=== PATIENT | female | born 1930 | race Caucasian/White ===

== ENCOUNTER 2016-05-29 06:41 | Emergency (ER) | payer OTHER ==
[~2016-05-29] VITALS: Ht 154.9 cm; Wt 54.4 kg
--- NOTE | ~2016-05-29 | EKG ---
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
[~2016-05-29 06:41] MED LIST: ADULT LOW DOSE81 MG PO; ALVESCO6.1; APAP500 PO; ASA81BEC PO; ASPIRIN81 M2 PO; AZITHROMYCIN; BACTRIM DS TAB1 EACH PO; BETAPACE AF80 MG PO; CARAFATE 1 GM TA1 G1 PO; CIPRO500 MG; CIPROFLOXACIN500 M1 PO; CLEOCIN HCL150 MG; COMBIVENT INH; DULERA 100 MCG/13 GM; DULERA 200 MCG/13 GM INH; ENTOCORT; FLAGYL500 MG PO; FLONASE16 GM NASAL; HYDROCHLOROTH12.5 M1 PO; HYDROCHLOROTH12.5 MG PO; HYDROCODONE-AP1 EAC6 PO; IBUPROFEN 600600 M1 PO; KEFLEX500 MG PO; LEVAQUIN 250 M250 MG PO; LEVAQUIN 500 M500 MG PO; LEVOTHYROXINE0.05 MG PO; LEVOXYL; LIDODERM 5%1 PATC1 TRANSDERM; LYRICA 50 MG50 MG PO; LYRICA PO; MACROBID 100 M100 M2 PO; NEXIUM 40 MG CA40 M1 PO; NEXIUM40 MG PO; NORCO 5-325 TA1 EACH PO; ONDANSETRON HCL4 M2 PO; PLAVIX 75 MG TA75 M1 PO; PREDNISONE 5 MG5 M1 PO; PROTONIX40 MG PO; PULMICORT FLE180 MCG INH; PULMICORT0.25 MG/2; PULMICORT0.25 MG/2 IH; PULMICORT0.25 MG/3 INH; REGLAN 10 MG TA10 MG PO; SANCTURA XR60 M1 PO; SINGULAIR 10 MG10 M1 PO; SORINE 80 MG TA80 MG PO; TEGRETOL XR100 MG PO; TEKTURNA PO; TEKTURNA150 MG PO; TEKTURNA300 MG PO; TRAMADOL 50 MG50 MG; TROSPIUM CHLORI60 MG PO; ULTRAM 50MG TAB50 MG PO; URIBEL CAPSULE1 EACH PO; VOLTAREN GEL 1100 G1 TOP; ZOCOR40 MG PO; ZOFRAN ODT4 MG PO; ZOFRAN4 MG PO
[2016-05-29 07:42] LABS: ABSOLUTE NEUTROPHILS 8.4 thou/uL (1.4-8.2); BASOPHILS 0.3 % (0.0-2.0); EOSINOPHILS 0.6 % (0.0-3.0); HEMOGLOBIN 13.2 gm/dL (12.0-15.0); LYMPHOCYTES 14.5 % (24.0-44.0); MCH 30.1 pg (26.0-34.0); MCHC 33.8 g/dL (28.0-37.0); MCV 89.2 fL (80.0-100.0); MONOCYTES 9.2 % (1.0-8.0); PLATELET COUNT 199 thou/uL (150-400); POLYS 75.4 % (36.0-66.0); RBC 4.37 mil/uL (4.20-5.00); RDW 14.6 % (10.5-14.5); WBC 11.1 thou/uL (4.0-11.0)
[2016-05-29 07:46] LABS: ANION GAP 8 mmol/L (7-16); BUN 14 mg/dL (7-18); CALCIUM 8.9 mg/dL (8.5-10.1); CHLORIDE 106 mmol/L (98-107); CO2 26 mmol/L (21-32); CREATININE 0.8 mg/dL (0.6-1.3); GLUCOSE 119 mg/dL (70-99); POTASSIUM 3.8 mmol/L (3.5-5.1); SODIUM 140 mmol/L (136-145)
[2016-05-29 07:47] LABS: MANUAL DIFF NO
[2016-05-29 07:52] LABS: ALBUMIN 3.2 g/dL (3.4-5.0); ALKALINE PHOSPHATASE 87 U/L (46-116); DIRECT BILIRUBIN < 0.1 mg/dL (<0.1-0.3); SGOT 15 U/L (15-37); SGPT 14 U/L (30-65); TOTAL BILIRUBIN 0.5 mg/dL (<0.1-1.0); TOTAL PROTEIN 6.6 g/dL (6.4-8.2); TROPONIN-I < 0.04 ng/mL (<0.04-0.07)
[2016-05-29 09:28] LABS: URINE BILIRUBIN NEGATIVE (Negative); URINE BLOOD TRACE (Negative); URINE COLOR YELLOW; URINE GLUCOSE-RANDOM* NEGATIVE (Negative); URINE KETONES NEGATIVE (Negative); URINE LEUKOCYTES-REFLEX NEGATIVE (Negative); URINE PROTEIN (DIPSTICK) NEGATIVE (Negative); URINE SPECIFIC GRAVITY 1.015 (1.003-1.035); URINE UROBILINOGEN 0.2 E.U./dl (0.2-1.0)
[2016-05-29 09:34] LABS: CASTS None Seen /LPF (None Seen); CRYSTALS None Seen /LPF (None Seen); SQUAMOUS 4-10 Moderate /LPF (0-3); URINE WBC-REFLEX 0-5 Rare /HPF (0-5)
[2016-05-29 09:35] LABS: URINE RBC 0-2 Rare /HPF (0-2)
[2016-05-29] MEDS ORDERED: CIPROFLOXACIN500 M1 PO (10:12)
[2016-05-29] MEDS ORDERED: ZOFRAN ODT4 MG PO (10:12)
[2016-05-29 10:51] VITALS: BP 112/47
== END 2016-05-29 11:09 | disposition home or self-care (01) ==
LOC: ER 06:41
PROVIDERS: Emergency Medicine
DX: N39.0 Urinary tract infection, site not specified (principal); R11.2 Nausea with vomiting, unspecified; J45.909 Unspecified asthma, uncomplicated; Z90.49 Acquired absence of other specified parts of digestive tract; Z90.710 Acquired absence of both cervix and uterus; I10 Essential (primary) hypertension; E78.5 Hyperlipidemia, unspecified; Z91.013 Allergy to seafood; Z88.5 Allergy status to narcotic agent; Z88.1 Allergy status to other antibiotic agents; Z88.0 Allergy status to penicillin; Z88.8 Allergy status to other drugs, medicaments and biological substances; F10.99 Alcohol use, unspecified with unspecified alcohol-induced disorder

== ENCOUNTER 2016-05-29 17:22 | Inpatient (IN) | payer OTHER ==
[~2016-05-29] VITALS: Ht 154.9 cm; Wt 62.1 kg
--- NOTE | ~2016-05-29 | H ---
[facility] [place] [address] HISTORY AND PHYSICAL Name: AMBER MIRAMONTES Room #: 406-P ADM IN M.R.#: [id number] Admission: 05/29/16 Attend Phys: Hoa Saeed MD Discharge: Date of : [birth year] Report #: [id number] THIS REPORT FOR: //name// CC: Mahad Saeed DATE OF SERVICE: 05/29/2016 PRIMARY CARE DOCTOR: Mahad Blum M.D. CHIEF COMPLAINT: Nausea. HISTORY OF PRESENT ILLNESS: The patient is an 86-year-old female seen in the ER earlier today and diagnosed with UTI. Sent home with Cipro and Zofran, presented to the ER secondary to nausea. The patient has a history of recurrent UTIs with multiple resistances and recently saw Urology, Dr. Chopra for a bladder biopsy. Additionally, she has had a number of urine cultures here at least 2 in the last year that grew out E. coli with multiple resistances. She received some Cipro and has a little bit of a rash on her chest. Despite that though her last 2 urine cultures were resistant to Cipro. She is alerted to a number of antibiotics including penicillins and cephalosporins. On her last admission in 2015, she was on gentamicin. PAST MEDICAL HISTORY: Recurrent UTIs, multiple antibiotic allergies, history of congenital abnormality of the right ureter, paroxysmal AFib not on chronic anticoagulation, dyslipidemia, hypertension, asthma followed by KYLE Moore with a history of Schatzki ring status post esophageal dilatation, lymphocytic colitis, history of diverticulitis, macular degeneration. PAST SURGICAL HISTORY: She has had a tonsillectomy, appendectomy, cholecystectomy, TAHBSO, cystocele and rectocele repair, surgery for broken right second toe. 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 FAMILY HISTORY: Brother and sister have dyslipidemia. REVIEW OF SYSTEMS: A 14-point review of system was conducted, all negative except for above. ALLERGIES: To SEAFOOD causes throat swelling, PHENERGAN causes combativeness and double vision; ROCEPHIN, PENICILLIN, CEPHALOSPORINS and MEPERIDINE, reaction unknown; CODEINE causes nausea and vomiting. [address] [address] HISTORY AND PHYSICAL Name: AMBER MIRAMONTES Room #: [address] [place] [address] IN ..#: [id number] Admission: 05/29/16 Attend Phys: Hoa Saeed MD Discharge: Date of : [birth year] Report #: [id number] CURRENT MEDICATIONS: Include Cipro and Zofran that she was sent home on, Tekturna 150 daily, simvastatin 40 daily, sotalol 80 daily, Uribel 1 daily. PHYSICAL EXAMINATION: VITAL SIGNS: Temperature 98, pulse 101, blood pressure 136/88, O2 sat 96% on room air. GENERAL: She is awake and alert, answering questions appropriately in no acute respiratory distress, although she is extremity hard of hearing. She is without her hearing aids at this time. HEENT: Normocephalic, atraumatic. Pupils are dry. NECK: Supple. CARDIOVASCULAR: Regular rhythm, increased in rate. No murmurs. LUNGS: Clear to auscultation bilaterally. No crackles or wheeze. ABDOMEN: Soft, no distention or tenderness. EXTREMITIES: No edema. NEUROLOGIC: Nonfocal. LABS AND TESTING: UA showed positive nitrites, negative leukocyte esterase greater than 30 bacteria, negative wbc's, lactate 1.0. Sodium of 140, potassium 3.8, BUN and creatinine of 14 and 0.8. LFTs are negative. CBC: White count of 11, H and H of 13 and 39, platelets 199, 75 segs. ASSESSMENT AND PLAN: 1. Recurrent urinary tract infections in a patient with a history of multiple antibiotic allergies and urinary tract infections with multiple resistances. We will consult ID, continue IV fluids. In the past, she has received gentamicin and there is also some indication that she has had meropenem in the past as well, but I cannot verify this. Additionally, she tells me she was recently on an antibiotic, but is uncertain as to what it was. We will continue antiemetics and IV fluids as well. 2. Paroxysmal atrial fibrillation not on chronic anticoagulation. Continue the same. 3. Dyslipidemia. Continue the same. 4. Hypertension. Continue the same. 5. Deep venous thrombosis prophylaxis with Lovenox. By: 1831 19 My Jorge Saeed MD /nt
--- NOTE | ~2016-05-29 | HC ---
[facility] [place] [address] CONSULTATION Name: AMBER MIRAMONTES Room #: 406-P ADM IN M.R.#: [id number] Admission: 05/29/16 Attend Phys: Hoa Saeed MD Discharge: Date of : [birth year] Report #: [id number] THIS REPORT FOR: //name// CC: Mahad Saeed INFECTIOUS DISEASE CONSULTATION REASON FOR CONSULTATION: I was asked to evaluate concerning ongoing nausea and possible urinary tract infection. 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 Actually she underwent a bladder biopsy after cystoscopy about 2 weeks ago at [facility]. She states that no pathology was identified. She presents to the Emergency Room on May 29 with 24 hour history of persistent nausea and just felt awful. Initially thought to have a urinary tract infection and was placed on ciprofloxacin. She took one pill and returned to the Emergency Room with the same complaints. No documented fever or leukocytosis. Her urinalysis showed bacteria, although urine white cell was negative. She has had no back or flank pain. No documented dysuria. No vomiting. Her stools have been normal. She does have a history of diverticulosis and a history of diverticulitis. Denies any rashes. She has had no cough or sputum production. No chest pain. She states that she feels better today and when I went in to see her, she was eating a bowl of ice cream. She was placed on meropenem. ALLERGIES: Include PENICILLIN, CEPHALOSPORINS, DEMEROL, CODEINE, PHENERGAN and SEAFOOD. MEDICATIONS: As noted on her MAR, now on meropenem. PAST MEDICAL HISTORY: Tonsillectomy, appendectomy, cholecystectomy, total abdominal hysterectomy, bilateral salpingo-oophorectomy, cystocele and rectocele repair, recurrent urinary tract infections. States that she has abnormal right ureter. Diverticulitis, lymphocytic colitis, macular degeneration, paroxysmal atrial fibrillation, hyperlipidemia, hypertension, asthma, gastroesophageal reflux, Schatzki ring, status post dilatation. FAMILY HISTORY: Hyperlipidemia. SOCIAL HISTORY: Retired, lives in [facility] living, nonsmoker, no significant alcohol intake. REVIEW OF SYSTEMS: Noted above. PHYSICAL EXAMINATION: VITAL SIGNS: Afebrile, hemodynamically stable. [address] [address] CONSULTATION Name: AMBER MIRAMONTES Room #: [address] [place] [address] IN M.R.#: [id number] Admission: 05/29/16 Attend Phys: Hoa Saeed MD Discharge: Date of : [birth year] Report #: [id number] GENERAL: She was alert and cooperative and pleasant. HEENT: Hard of hearing. SKIN: Unremarkable. LYMPH: Unremarkable. HEENT: Unremarkable. LUNGS: Clear. HEART: Regular without murmur. ABDOMEN: Soft with mild tenderness in the lower abdomen. No hepatosplenomegaly or mass. No CVA tenderness. EXTREMITIES: Unremarkable. LABORATORY STUDIES: Hemoglobin 12.3, white count 8.3, platelet count 180,000. Segs 64, 22% lymphs, lactate 1. Sodium 141, potassium 3.7, bicarbonate 26, creatinine 0.8. Liver function test normal. Urinalysis, no wbcs, moderate bacteria. Urine culture is showing gram negative bacteria. Review of her previous urine cultures showed E. coli within the last 2 years on several occasions and before this had Klebsiella. Last CT scan of the abdomen and pelvis was in January of 2016. This revealed prominence of the bladder wall and extensive diverticulosis. IMPRESSION AND PLAN: An 86-year-old with complaints of nausea. This has improved after hydration. She has bacteriuria with no other urinary tract symptoms. Therefore her unifying diagnosis is yet indeterminate. I would recommend continuing IV antibiotics another 24 hours and reassess. If she still has lower abdominal tenderness, would consider repeating CT scan to assess for diverticulitis. <ELECTRONICALLY SIGNED> By: Ruslan Ji MD 05/31/16 1115 1856 0109 Ruslan Ji MD /nt
[2016-05-29 17:23] VITALS: BP 160/90
[2016-05-29 20:10] VITALS: BP 126/69
[2016-05-29 23:30] VITALS: BP 125/71
[2016-05-30 03:56] VITALS: BP 104/55
[2016-05-30 06:44] LABS: ABSOLUTE NEUTROPHILS 5.4 thou/uL (1.4-8.2); BASOPHILS 0.4 % (0.0-2.0); EOSINOPHILS 0.5 % (0.0-3.0); HEMATOCRIT 36.1 % (37.0-47.0); HEMOGLOBIN 12.3 gm/dL (12.0-15.0); LYMPHOCYTES 22.4 % (24.0-44.0); MCH 30.4 pg (26.0-34.0); MCHC 34.1 g/dL (28.0-37.0); MONOCYTES 11.9 % (1.0-8.0); PLATELET COUNT 180 thou/uL (150-400); POLYS 64.8 % (36.0-66.0); RBC 4.05 mil/uL (4.20-5.00); RDW 14.7 % (10.5-14.5); WBC 8.3 thou/uL (4.0-11.0)
[2016-05-30 06:46] LABS: MANUAL DIFF NO
[2016-05-30 07:00] LABS: CALCIUM 8.7 mg/dL (8.5-10.1); CREATININE 0.8 mg/dL (0.6-1.3); POTASSIUM 3.7 mmol/L (3.5-5.1)
[2016-05-30 08:17] VITALS: BP 110/57
[2016-05-30 17:39] VITALS: BP 128/48
[2016-05-30 19:30] VITALS: BP 140/56
[2016-05-30 19:46] VITALS: BP 124/77
[2016-05-31 05:10] VITALS: BP 107/87
[2016-05-31 08:00] VITALS: BP 128/62
[2016-05-31 15:48] VITALS: BP 117/58
[2016-05-31 16:27] VITALS: BP 117/58
== END 2016-05-31 17:49 | disposition home or self-care (01) | DRG 690 ==
LOC: ER 17:22 → EROBS 17:56 → 4N 17:56
PROVIDERS: Family Medicine
DX: N39.0 Urinary tract infection, site not specified (principal); K57.90 Diverticulosis of intestine, part unspecified, without perforation or abscess without bleeding; J45.909 Unspecified asthma, uncomplicated; I10 Essential (primary) hypertension; E78.5 Hyperlipidemia, unspecified; R00.0 Tachycardia, unspecified; I48.0 Paroxysmal atrial fibrillation; H35.30 Unspecified macular degeneration; K21.9 Gastro-esophageal reflux disease without esophagitis; Z79.01 Long term (current) use of anticoagulants; Z90.710 Acquired absence of both cervix and uterus; Z88.6 Allergy status to analgesic agent; Z88.0 Allergy status to penicillin; Z88.8 Allergy status to other drugs, medicaments and biological substances; Z90.49 Acquired absence of other specified parts of digestive tract; Z91.013 Allergy to seafood; Z90.722 Acquired absence of ovaries, bilateral; Z79.899 Other long term (current) drug therapy; Z83.49 Family history of other endocrine, nutritional and metabolic diseases
CPT/HCPCS: 10091

== ENCOUNTER → 2016-08-22 | Outpatient (CLI) | payer OTHER | LOC: RAD 02:45 → ULTRA 02:45 | DX: R92.8 Other abnormal and inconclusive findings on diagnostic imaging of breast (principal) ==

== ENCOUNTER 2016-10-03 11:41 | Inpatient (IN) | payer OTHER ==
[~2016-10-03] VITALS: Ht 165.1 cm; Wt 66.7 kg
[2016-10-03 11:45] VITALS: BP 113/64
[2016-10-03 12:09] LABS: HEMATOCRIT 40.5 % (37.0-47.0); HEMOGLOBIN 13.8 gm/dL (12.0-15.0); MANUAL DIFF YES; MCH 30.7 pg (26.0-34.0); MCHC 34.2 g/dL (28.0-37.0); MCV 89.9 fL (80.0-100.0); PLATELET COUNT 222 thou/uL (150-400); RBC 4.51 mil/uL (4.20-5.00); RDW 14.8 % (10.5-14.5); WBC 10.2 thou/uL (4.0-11.0)
[2016-10-03 12:16] LABS: ANION GAP 9 mmol/L (7-16); BUN 21 mg/dL (7-18); CALCIUM 9.2 mg/dL (8.5-10.1); CHLORIDE 104 mmol/L (98-107); CO2 26 mmol/L (21-32); CREATININE 0.9 mg/dL (0.6-1.0); GLUCOSE 108 mg/dL (74-106); SODIUM 139 mmol/L (136-145)
[2016-10-03 12:22] LABS: ALBUMIN 3.5 g/dL (3.4-5.0); ALKALINE PHOSPHATASE 84 U/L (46-116); DIRECT BILIRUBIN < 0.1 mg/dL (<0.1-0.3); SGOT 15 U/L (15-37); SGPT 14 U/L (30-65); TOTAL BILIRUBIN 0.5 mg/dL (<0.1-1.0); TOTAL PROTEIN 7.2 g/dL (6.4-8.2)
[2016-10-03 12:40] LABS: URINE BILIRUBIN NEGATIVE (Negative); URINE BLOOD TRACE (Negative); URINE COLOR YELLOW; URINE GLUCOSE-RANDOM* NEGATIVE (Negative); URINE KETONES NEGATIVE (Negative); URINE NITRITE NEGATIVE (Negative); URINE PROTEIN (DIPSTICK) NEGATIVE (Negative); URINE UROBILINOGEN 0.2 E.U./dl (0.2-1.0)
[2016-10-03 12:49] LABS: BACTERIA >30 Many /HPF (None Seen); CASTS None Seen /LPF (None Seen); CRYSTALS None Seen /LPF (None Seen); SQUAMOUS 0-3 Few /LPF (0-3); URINE RBC 0-2 Rare /HPF (0-2); URINE WBC >25 Many /HPF (0-5)
[2016-10-03 12:58] LABS: ABSOLUTE NEUTROPHILS 6.1 thou/uL (1.4-8.2); ANISOCYTOSIS SLIGHT; ATYPICAL LYMPHS 1 %; TOTAL CELL COUNT 100
[2016-10-03 13:11] VITALS: BP 139/74
[2016-10-03 13:15] VITALS: BP 146/71
[2016-10-03 14:15] VITALS: BP 147/61
[2016-10-03 20:00] VITALS: BP 89/55
[2016-10-04] VITALS: BP 88/63
[2016-10-04 04:00] VITALS: BP 136/53
[2016-10-04 06:56] LABS: HEMATOCRIT 37.5 % (37.0-47.0); HEMOGLOBIN 12.8 gm/dL (12.0-15.0); MCH 30.6 pg (26.0-34.0); MCHC 34.1 g/dL (28.0-37.0); MCV 89.9 fL (80.0-100.0); RBC 4.18 mil/uL (4.20-5.00); RDW 15.2 % (10.5-14.5); WBC 7.7 thou/uL (4.0-11.0)
[2016-10-04 07:17] LABS: CALCIUM 8.9 mg/dL (8.5-10.1); POTASSIUM 4.8 mmol/L (3.5-5.1)
[2016-10-04 08:00] VITALS: BP 123/62
[2016-10-04 16:00] VITALS: BP 130/65
[2016-10-04 20:10] VITALS: BP 138/65
[2016-10-05 04:25] VITALS: BP 120/66
[2016-10-05 07:22] VITALS: BP 132/70
[2016-10-05 09:37] LABS: BASOPHILS 0.7 % (0.0-2.0); EOSINOPHILS 1.2 % (0.0-3.0); HEMATOCRIT 39.6 % (37.0-47.0); HEMOGLOBIN 13.5 gm/dL (12.0-15.0); LYMPHOCYTES 27.4 % (24.0-44.0); MCH 30.3 pg (26.0-34.0); MCHC 34.1 g/dL (28.0-37.0); MCV 88.8 fL (80.0-100.0); MONOCYTES 7.2 % (1.0-8.0); PLATELET COUNT 222 thou/uL (150-400); POLYS 63.5 % (36.0-66.0); RBC 4.45 mil/uL (4.20-5.00); RDW 14.7 % (10.5-14.5); WBC 6.3 thou/uL (4.0-11.0)
[2016-10-05 09:41] LABS: MANUAL DIFF NO
[2016-10-05 09:44] LABS: CREATININE 0.9 mg/dL (0.6-1.0); POTASSIUM 4.2 mmol/L (3.5-5.1)
[2016-10-05 16:24] VITALS: BP 113/49
[2016-10-05 20:25] VITALS: BP 101/55
[2016-10-06 04:10] VITALS: BP 110/61
[2016-10-06 07:23] VITALS: BP 114/54
[2016-10-06] MEDS ORDERED: MONUROL3 GM PO (11:43)
[2016-10-06 12:24] VITALS: BP 114/54
== END 2016-10-06 13:35 | disposition home health service (06) | DRG 690 ==
LOC: ER 11:41 → 3N 12:57 → EROBS 12:57 → 3N 14:08
PROVIDERS: Emergency Medicine; Hospitalist; Nurse Practitioner
DX: N39.0 Urinary tract infection, site not specified (principal); K57.90 Diverticulosis of intestine, part unspecified, without perforation or abscess without bleeding; J45.909 Unspecified asthma, uncomplicated; I10 Essential (primary) hypertension; E78.00 Pure hypercholesterolemia, unspecified; H35.30 Unspecified macular degeneration; E78.5 Hyperlipidemia, unspecified; Z90.49 Acquired absence of other specified parts of digestive tract; Z90.710 Acquired absence of both cervix and uterus; Z79.899 Other long term (current) drug therapy; Z88.0 Allergy status to penicillin; Z88.8 Allergy status to other drugs, medicaments and biological substances; Z88.6 Allergy status to analgesic agent; Z91.013 Allergy to seafood
CPT/HCPCS: 10795

== ENCOUNTER 2016-11-10 00:27 | Emergency (ER) | payer OTHER ==
[~2016-11-10] VITALS: Ht 154.9 cm; Wt 54.4 kg
--- NOTE | ~2016-11-10 | EKG ---
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 : 1930 Requested By: Lorraine Silverio Order Number: [id number] MD: Rajesh Paz Measurements Intervals [place] Rate: 61 P: -10 WV: 215 QRS: -31 QRSD: 103 T: -8 QT: 460 QTc: 464 Interpretive Statements Sinus rhythm Borderline prolonged WV interval Left axis deviation Low voltage, precordial leads Probable anteroseptal infarct, old Borderline T abnormalities, inferior leads Compared to ECG 05/29/2016 06:51:52 Left-axis deviation now present Low QRS voltage now present Electronically Signed On 11-11-2016 12:37:57 CDT by Rajesh Paz [email or web address] <ELECTRONICALLY SIGNED> By: Rajesh Paz MD 11/11/16 1237 0053 0053 Rajesh Paz MD /EPI
--- NOTE | ~2016-11-10 | S ---
[facility] [place] [address] SURGICAL PATH RPT PROCEDURE Name: AMBER PETERSON Room #: DEP Esequiel#: [id number] Admission: 11/10/16 Date of : [birth year] Discharge: 11/10/16 Report #: [id number] Path Case #: [id number] PATHOLOGY REPORT COLLECTION DATE: 11/11/2016 RECEIVED DATE: 11/13/2016 SUBMITTING PHYS: Dr. Pola Goodwin OTHER PHYS: Dr. Delvis Silverio SPECIMEN(S) RECEIVED: A.Sigmoid colon B.Rectal colon bx * * * * * * * * * * * * FINAL DIAGNOSIS: A. Large intestine, sigmoid colon, endoscopic biopsy: - Byaigkvc-yi-gfgdhb active colitis. - Negative for dysplasia or malignancy. B. Large intestine, rectum, endoscopic biopsy: - Ytxdjigg-cj-yuqfat active colitis. - Negative for dysplasia or malignancy. COMMENT: Examination of both biopsy tissues from "sigmoid colon", and "rectum", shows a markedly expanded lamina propria with a lymphoplasmacytic infiltrate. Occasional prominent lymphoid aggregates are present. There is cryptitis, and crypt abscess formation present. Occasional architectural abnormalities are identified. Rare foci show a thickened collagen layer underneath the epithelium; however, this may be due to the ongoing injury in the colonic mucosa. Viral inclusions, granulomata, or parasitic organisms are not present. Overall findings are suggestive of an active colitis, either of an infectious type, marked active colitis due to inflammatory bowel disease, as well as diverticulitis. Clinical correlation is suggested. There is no dysplasia or malignancy present. (IUV:mml; 11/14/2016) PATHOLOGIST: Mera Montalvo M.D. REPORT ELECTRONICALLY SIGNED BY: Mera Montalvo M.D. DATE/TIME: 11/14/2016 16:39 * * * * * * * * * * * * GROSS PATHOLOGY: [facility] [address] [place] [address] SURGICAL PATH RPT PROCEDURE Name: AMBER PEETRSON Room #: [facility]#: [id number] Admission: 11/10/16 Date of : [birth year] Discharge: 11/10/16 Report #: [id number] Path Case #: [id number] A. Received in formalin labeled "Amber Peterson, sigmoid colon," are four segments of [place] soft tissue measuring 0.5 x 0.3 x 0.2 cm in aggregate dimensions and ranging from 0.2 to 0.3 cm in maximum dimension. The specimen is submitted entirely in cassette A1. B. Received in formalin labeled "Amber Peterson, rectal biopsy," are five segments of [place] soft tissue measuring 1.1 x 0.5 x 0.2 cm in aggregate dimensions and ranging from 0.2 to 0.5 cm in maximum dimension. The specimen is submitted entirely in cassette B1. ([facility]; 11/13/2016) CLINICAL HISTORY: GI bleed, colitis INITIAL CPT CODE(S): A; 51056 B; 57535 Professional services performed by [facility] at [facility] [address], [place] [address] Technical services performed by [facility] at [address] [place] [address], [address], [place] [address]. [facility] [address] [place] [address] PHONE: [phone] DIRECTOR: Aidan Alonso M.D. * * * END OF REPORT * * *
[~2016-11-10 00:27] MED LIST changes: +MONUROL3 GM PO
[2016-11-10 01:36] LABS: BASOPHILS 1.3 % (0.0-2.0); EOSINOPHILS 1.9 % (0.0-3.0); HEMATOCRIT 37.7 % (37.0-47.0); HEMOGLOBIN 12.7 gm/dL (12.0-15.0); LYMPHOCYTES 36.7 % (24.0-44.0); MCHC 33.6 g/dL (28.0-37.0); MCV 89.3 fL (80.0-100.0); MONOCYTES 10.9 % (1.0-8.0); PLATELET COUNT 205 thou/uL (150-400); POLYS 49.2 % (36.0-66.0); RBC 4.22 mil/uL (4.20-5.00); WBC 8.2 thou/uL (4.0-11.0)
[2016-11-10 01:39] LABS: ANION GAP 9 mmol/L (7-16); BUN 15 mg/dL (7-18); CHLORIDE 105 mmol/L (98-107); CO2 26 mmol/L (21-32); CREATININE 0.7 mg/dL (0.6-1.0); GLUCOSE 101 mg/dL (74-106); POTASSIUM 4.1 mmol/L (3.5-5.1); SODIUM 140 mmol/L (136-145)
[2016-11-10 01:40] LABS: MANUAL DIFF NO
[2016-11-10 01:47] LABS: URINE BILIRUBIN NEGATIVE (Negative); URINE BLOOD NEGATIVE (Negative); URINE COLOR YELLOW; URINE GLUCOSE-RANDOM* NEGATIVE (Negative); URINE KETONES NEGATIVE (Negative); URINE NITRITE NEGATIVE (Negative); URINE PROTEIN (DIPSTICK) NEGATIVE (Negative); URINE SPECIFIC GRAVITY <= 1.005 (1.003-1.035); URINE UROBILINOGEN 0.2 E.U./dl (0.2-1.0)
[2016-11-10 01:48] LABS: TROPONIN-I < 0.04 ng/mL (<0.04-0.07)
[2016-11-10] MEDS ORDERED: NORCO 5-325 TA1 EACH PO (02:06)
[2016-11-10] MEDS ORDERED: PREDNISONE 20 M20 MG PO (02:07)
[2016-11-10 02:35] VITALS: BP 151/65
== END 2016-11-10 02:36 | disposition home or self-care (01) ==
LOC: ER 00:27
PROVIDERS: Emergency Medicine
DX: M54.12 Radiculopathy, cervical region (principal); K52.9 Noninfective gastroenteritis and colitis, unspecified; J45.909 Unspecified asthma, uncomplicated; I10 Essential (primary) hypertension; E78.00 Pure hypercholesterolemia, unspecified; H35.30 Unspecified macular degeneration; Z90.49 Acquired absence of other specified parts of digestive tract; Z90.710 Acquired absence of both cervix and uterus; Z91.013 Allergy to seafood; Z88.8 Allergy status to other drugs, medicaments and biological substances; Z88.5 Allergy status to narcotic agent; Z88.1 Allergy status to other antibiotic agents; Z88.0 Allergy status to penicillin

== ENCOUNTER 2016-11-24 11:36 | Inpatient (IN) | payer OTHER ==
[~2016-11-24] VITALS: Ht 154.9 cm; Wt 63.0 kg
--- NOTE | ~2016-11-24 | EKG ---
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 : 1930 Requested By: Mona Tubbs Order Number: [id number] MD: Gallito Noland Measurements Intervals [place] Rate: 89 P: 5 LA: 143 QRS: -45 QRSD: 105 T: 44 QT: 372 QTc: 453 Interpretive Statements Sinus rhythm Inferior infarct, old Poor R wave progression Compared to ECG 11/10/2016 00:53:53 No significant change was found Electronically Signed On 11-27-2016 8:07:12 CDT by Gallito Noland [email or web address] <ELECTRONICALLY SIGNED> By: Gallito Noland MD, FACC 11/27/16 0807 1217 1217 Gallito Noland MD, [facility] /EPI
--- NOTE | ~2016-11-24 | HC ---
[facility] [place] [address] CONSULTATION Name: AMBER MIRAMONTES Room #: 407-P ADM IN M.R.#: [id number] Admission: 11/24/16 Attend Phys: Rj Tena MD Discharge: Date of : [birth year] Report #: [id number] THIS REPORT FOR: //name// CC: Mahad Tena DATE OF SERVICE: 11/25/2016 INFECTIOUS DISEASE CONSULTATION DATE OF SERVICE: 11/25/2016 REASON FOR CONSULTATION: I was asked to evaluate concerning recurrent urinary tract infection. HISTORY OF PRESENT ILLNESS: The patient is an 86-year-old who I had seen previously with recurrent urinary tract infection. Previous growth of E. coli. Last evaluation in October was normal valery. She has seen Urology for a history of congenital right ureteral malformation. She has had bladder biopsy, which showed benign disease. She has tried different medications without resolution of her recurrences. As an outpatient, she saw ____ who put her on oral antibiotic. She said she felt fine while on this, only to relapse. During my evaluation in October, she was treated with IV antibiotic therapy, then switched to ____. On presentation now, she complains of lower abdominal discomfort. Urinary frequency. Not much dysuria. No fever or chills. No vomiting and no back or flank pain. On presentation, workup revealed leukocytosis yesterday up to 32,000, on repeat it was 10.[address] scan of the abdomen and pelvis showed no evidence of ureteral obstruction. No GI changes. Placed on aztreonam in the Emergency Room, continued on Merrem. No fever, chills or sweats. States she feels better today. ALLERGIES: Multiple including PENICILLIN, CEPHALOSPORINS, DEMEROL, CODEINE, SEAFOOD, PROMETHAZINE. MEDICATIONS: As noted on her MAR, now on meropenem. PAST MEDICAL HISTORY: Unchanged from previous consultation. FAMILY HISTORY: Unchanged from previous consultation. SOCIAL HISTORY: Unchanged from previous consultation. REVIEW OF SYSTEMS: No cardiopulmonary, GI issues. [facility] [address] [place] [address] CONSULTATION Name: AMBER MIRAMONTES Room #: [facility] IN .R.#: [id number] Admission: 11/24/16 Attend Phys: Rj Tena MD Discharge: Date of : [birth year] Report #: [id number] PHYSICAL EXAMINATION: VITAL SIGNS: Afebrile, hemodynamically stable. GENERAL: She is alert and cooperative and pleasant, in no acute distress. CHEST: Clear. HEART: Regular. ABDOMEN: Soft, nontender, no hepatosplenomegaly or mass. EXTREMITIES: Unremarkable. LABORATORY STUDIES: Sodium 141, potassium 4.0, bicarbonate 27, creatinine 1, hemoglobin 12.7, platelet count 204,000, white count of 10.2. Urinalysis, moderate WBCs, many bacteria. Urine culture, Gram-negative bacilli thus far. CT scan as noted above. IMPRESSION: Recurrent cystitis. Previous workup has not identified any other treatable issues. To my recollection, she does empty her bladder reasonably well. This will be rechecked. We may need to try an alternate agents such as methenamine to see if we can decrease her recurrences. For now, we will stay on meropenem until sensitivities are back from her urine culture. <ELECTRONICALLY SIGNED> By: Ruslan Ji MD 11/26/16 1301 1333 1437 Ruslan Ji MD /nt
[~2016-11-24 11:36] MED LIST changes: +PREDNISONE 20 M20 MG PO
[2016-11-24 11:37] VITALS: BP 121/58
[2016-11-24 12:24] LABS: HEMATOCRIT 41.9 % (37.0-47.0); MCH 30.3 pg (26.0-34.0); MCHC 33.4 g/dL (28.0-37.0); MCV 90.7 fL (80.0-100.0); PLATELET COUNT 230 thou/uL (150-400); RBC 4.62 mil/uL (4.20-5.00); WBC 32.4 thou/uL (4.0-11.0)
[2016-11-24 12:27] LABS: MANUAL DIFF YES
[2016-11-24 12:31] LABS: ANION GAP 8 mmol/L (7-16); BUN 24 mg/dL (7-18); CALCIUM 9.1 mg/dL (8.5-10.1); CHLORIDE 103 mmol/L (98-107); CO2 27 mmol/L (21-32); CREATININE 0.9 mg/dL (0.6-1.0); GLUCOSE 107 mg/dL (74-106); POTASSIUM 4.1 mmol/L (3.5-5.1); SODIUM 138 mmol/L (136-145)
[2016-11-24 12:37] LABS: ALBUMIN 3.3 g/dL (3.4-5.0); ALKALINE PHOSPHATASE 74 U/L (46-116); DIRECT BILIRUBIN < 0.1 mg/dL (<0.1-0.3); SGOT 11 U/L (15-37); SGPT 10 U/L (30-65); TOTAL BILIRUBIN 0.4 mg/dL (<0.1-1.0); TOTAL PROTEIN 6.4 g/dL (6.4-8.2)
[2016-11-24 12:48] LABS: ABSOLUTE NEUTROPHILS 28.5 thou/uL (1.4-8.2); PLATELET ESTIMATE NORMAL; TOTAL CELL COUNT 100
[2016-11-24 13:58] LABS: URINE BILIRUBIN NEGATIVE (Negative); URINE BLOOD NEGATIVE (Negative); URINE COLOR YELLOW; URINE GLUCOSE-RANDOM* NEGATIVE (Negative); URINE KETONES NEGATIVE (Negative); URINE PROTEIN (DIPSTICK) NEGATIVE (Negative); URINE UROBILINOGEN 0.2 E.U./dl (0.2-1.0)
[2016-11-24 14:00] LABS: URINE LEUKOCYTES-REFLEX 1+ (Negative)
[2016-11-24 14:02] LABS: SQUAMOUS 0-3 Few /LPF (0-3)
[2016-11-24 14:03] LABS: CASTS None Seen /LPF (None Seen); CRYSTALS None Seen /LPF (None Seen); URINE RBC None Seen /HPF (0-2)
[2016-11-24 16:31] VITALS: BP 124/60
[2016-11-24 19:52] VITALS: BP 109/50
[2016-11-25 04:35] VITALS: BP 105/46
[2016-11-25 07:18] LABS: HEMATOCRIT 37.2 % (37.0-47.0); HEMOGLOBIN 12.7 gm/dL (12.0-15.0); MCH 30.7 pg (26.0-34.0); MCV 90.4 fL (80.0-100.0); RBC 4.12 mil/uL (4.20-5.00); RDW 15.1 % (10.5-14.5); WBC 10.2 thou/uL (4.0-11.0)
[2016-11-25 07:25] LABS: CALCIUM 8.6 mg/dL (8.5-10.1)
[2016-11-25 08:29] VITALS: BP 126/49
[2016-11-25 16:11] VITALS: BP 104/57
[2016-11-25 19:18] VITALS: BP 123/54
[2016-11-26 03:57] VITALS: BP 142/67
[2016-11-26 08:00] VITALS: BP 141/69
[2016-11-26 10:47] LABS: HEMATOCRIT 33.7 % (37.0-47.0); HEMOGLOBIN 11.4 gm/dL (12.0-15.0); MCH 30.6 pg (26.0-34.0); MCHC 33.8 g/dL (28.0-37.0); MCV 90.6 fL (80.0-100.0); RBC 3.72 mil/uL (4.20-5.00); RDW 15.1 % (10.5-14.5); WBC 12.8 thou/uL (4.0-11.0)
[2016-11-26] MEDS ORDERED: HIPREX1 GM PO (13:44)
[2016-11-26] MEDS ORDERED: BACTRIM DS TAB1 EACH PO (14:09)
[2016-11-26] MEDS ORDERED: ACEROLA C500 MG PO (14:10)
[2016-11-26 14:14] VITALS: BP 141/69
== END 2016-11-26 15:40 | disposition home or self-care (01) | DRG 690 ==
LOC: ER 11:36 → EROBS 14:29 → 4N 16:48
PROVIDERS: Emergency Medicine; Internal Medicine
DX: N39.0 Urinary tract infection, site not specified (principal); K57.90 Diverticulosis of intestine, part unspecified, without perforation or abscess without bleeding; J45.909 Unspecified asthma, uncomplicated; I10 Essential (primary) hypertension; E78.5 Hyperlipidemia, unspecified; H35.30 Unspecified macular degeneration; Z88.6 Allergy status to analgesic agent; Z88.0 Allergy status to penicillin; Z88.8 Allergy status to other drugs, medicaments and biological substances; Z91.013 Allergy to seafood; Z90.49 Acquired absence of other specified parts of digestive tract; Z90.710 Acquired absence of both cervix and uterus; Z79.899 Other long term (current) drug therapy
CPT/HCPCS: 10790

== ENCOUNTER 2016-12-26 21:28 | Inpatient (IN) | payer OTHER ==
[~2016-12-26] VITALS: Ht 154.9 cm; Wt 63.7 kg
[~2016-12-26 21:28] MED LIST changes: +ACEROLA C500 MG PO; +HIPREX1 GM PO
[2016-12-26 21:30] VITALS: BP 138/93
[2016-12-26 21:51] LABS: BASOPHILS 0.5 % (0.0-2.0); EOSINOPHILS 1.1 % (0.0-3.0); HEMATOCRIT 38.3 % (37.0-47.0); HEMOGLOBIN 12.9 gm/dL (12.0-15.0); LYMPHOCYTES 22.7 % (24.0-44.0); MCH 30.8 pg (26.0-34.0); MCHC 33.7 g/dL (28.0-37.0); MCV 91.3 fL (80.0-100.0); MONOCYTES 11.1 % (1.0-8.0); PLATELET COUNT 209 thou/uL (150-400); POLYS 64.6 % (36.0-66.0); RBC 4.19 mil/uL (4.20-5.00); RDW 14.6 % (10.5-14.5); WBC 9.3 thou/uL (4.0-11.0)
[2016-12-26 21:52] LABS: MANUAL DIFF NO
[2016-12-26 22:00] LABS: ANION GAP 7 mmol/L (7-16); BUN 14 mg/dL (7-18); CALCIUM 8.8 mg/dL (8.5-10.1); CHLORIDE 105 mmol/L (98-107); CO2 28 mmol/L (21-32); GLUCOSE 134 mg/dL (74-106); POTASSIUM 3.7 mmol/L (3.5-5.1); SODIUM 140 mmol/L (136-145)
[2016-12-26 22:15] LABS: ALBUMIN 3.2 g/dL (3.4-5.0); ALKALINE PHOSPHATASE 109 U/L (46-116); DIRECT BILIRUBIN < 0.1 mg/dL (<0.1-0.3); SGOT 14 U/L (15-37); SGPT 13 U/L (30-65); TOTAL BILIRUBIN 0.3 mg/dL (<0.1-1.0); TOTAL PROTEIN 6.6 g/dL (6.4-8.2)
[2016-12-26 22:37] LABS: URINE BILIRUBIN NEGATIVE (Negative); URINE BLOOD TRACE (Negative); URINE COLOR YELLOW; URINE GLUCOSE-RANDOM* NEGATIVE (Negative); URINE KETONES NEGATIVE (Negative); URINE NITRITE NEGATIVE (Negative); URINE PROTEIN (DIPSTICK) NEGATIVE (Negative); URINE UROBILINOGEN 0.2 E.U./dl (0.2-1.0)
[2016-12-26 22:53] LABS: CASTS None Seen /LPF (None Seen); SQUAMOUS 4-10 Moderate /LPF (0-3)
[2016-12-26 22:54] LABS: BACTERIA 1-9 Few /HPF (None Seen); CRYSTALS None Seen /LPF (None Seen); URINE RBC 0-2 Rare /HPF (0-2); URINE WBC >25 Many /HPF (0-5)
[2016-12-26 23:31] VITALS: BP 138/93
[2016-12-27 00:13] VITALS: BP 121/55
[2016-12-27 00:50] VITALS: BP 142/41
[2016-12-27 03:40] VITALS: BP 1129/43; BP 129/43
[2016-12-27 08:00] VITALS: BP 126/54
[2016-12-27 15:10] VITALS: BP 128/46
[2016-12-27 20:15] VITALS: BP 152/66
[2016-12-28 05:15] VITALS: BP 112/49
[2016-12-28 07:30] VITALS: BP 124/59
[2016-12-28 07:44] LABS: HEMATOCRIT 35.1 % (37.0-47.0); HEMOGLOBIN 11.7 gm/dL (12.0-15.0); MCH 30.4 pg (26.0-34.0); MCHC 33.2 g/dL (28.0-37.0); MCV 91.5 fL (80.0-100.0); PLATELET COUNT 173 thou/uL (150-400); RBC 3.84 mil/uL (4.20-5.00); RDW 14.8 % (10.5-14.5); WBC 5.8 thou/uL (4.0-11.0)
[2016-12-28 07:49] LABS: MANUAL DIFF YES
[2016-12-28 08:02] LABS: CALCIUM 8.7 mg/dL (8.5-10.1); CREATININE 0.8 mg/dL (0.6-1.0); POTASSIUM 4.3 mmol/L (3.5-5.1)
[2016-12-28 09:27] LABS: ABSOLUTE NEUTROPHILS 3.1 thou/uL (1.4-8.2); ATYPICAL LYMPHS 1 %; TOTAL CELL COUNT 100
[2016-12-28 09:29] LABS: ANISOCYTOSIS 1+
[2016-12-28] MEDS ORDERED: CIPRO500 MG PO (11:13)
[2016-12-28 11:18] VITALS: BP 124/59
== END 2016-12-28 13:19 | disposition home or self-care (01) | DRG 690 ==
LOC: ER 21:28 → 4S 23:17 → EROBS 23:17 → 4S 12-27 00:36 → ENTRNSPT 12-28 12:14 → EDTRNSPTSTS 12-28 12:22 → 4S 12-28 13:19
PROVIDERS: Emergency Medicine; Family Medicine
DX: N39.0 Urinary tract infection, site not specified (principal); K57.90 Diverticulosis of intestine, part unspecified, without perforation or abscess without bleeding; J45.909 Unspecified asthma, uncomplicated; I10 Essential (primary) hypertension; E78.00 Pure hypercholesterolemia, unspecified; Z88.8 Allergy status to other drugs, medicaments and biological substances; Z90.49 Acquired absence of other specified parts of digestive tract; Z88.6 Allergy status to analgesic agent; Z91.010 Allergy to peanuts; Z91.013 Allergy to seafood; Z79.899 Other long term (current) drug therapy; Z28.21 Immunization not carried out because of patient refusal
CPT/HCPCS: 10195

== ENCOUNTER 2017-07-25 23:27 | Emergency (ER) | payer OTHER ==
[~2017-07-25] VITALS: Ht 154.9 cm; Wt 54.4 kg
[~2017-07-25 23:27] MED LIST changes: +CIPRO500 MG PO
[2017-07-25 23:56] LABS: URINE BILIRUBIN NEGATIVE (Negative); URINE BLOOD 2+ (Negative); URINE CLARITY CLOUDY; URINE COLOR YELLOW; URINE GLUCOSE-RANDOM* NEGATIVE (Negative); URINE KETONES NEGATIVE (Negative); URINE NITRITE-REFLEX NEGATIVE (Negative); URINE PROTEIN (DIPSTICK) 1+ (Negative); URINE SPECIFIC GRAVITY >= 1.030 (1.005-1.035); URINE UROBILINOGEN 0.2 E.U./dl (0.2-1.0)
[2017-07-26] LABS: URINE LEUKOCYTES-REFLEX 3+ (Negative)
[2017-07-26 00:10] LABS: BACTERIA-REFLEX >30 Many /HPF (None Seen); CASTS None Seen /LPF (None Seen); CRYSTALS None Seen /LPF (None Seen); SQUAMOUS >10 Many /LPF (0-3); URINE RBC 3-10 Few /HPF (0-2); URINE WBC-REFLEX >25 Many /HPF (0-5)
[2017-07-26 00:14] LABS: ABSOLUTE NEUTROPHILS 4.9 thou/uL (1.4-8.2); BASOPHILS 0.5 % (0.0-2.0); EOSINOPHILS 1.4 % (0.0-3.0); HEMATOCRIT 40.5 % (37.0-47.0); HEMOGLOBIN 13.7 gm/dL (12.0-15.0); LYMPHOCYTES 28.3 % (24.0-44.0); MCH 30.5 pg (26.0-34.0); MCHC 33.7 g/dL (28.0-37.0); MCV 90.6 fL (80.0-100.0); MONOCYTES 10.6 % (1.0-8.0); PLATELET COUNT 209 thou/uL (150-400); POLYS 59.2 % (36.0-66.0); RBC 4.47 mil/uL (4.20-5.00); RDW 14.1 % (10.5-14.5); WBC 8.3 thou/uL (4.0-11.0)
[2017-07-26 00:20] LABS: CALCIUM 9.8 mg/dL (8.5-10.1); CREATININE 0.9 mg/dL (0.6-1.0); POTASSIUM 4.4 mmol/L (3.5-5.1)
[2017-07-26 00:26] LABS: ALBUMIN 3.4 g/dL (3.4-5.0); TOTAL BILIRUBIN 0.4 mg/dL (<0.1-1.0); TOTAL PROTEIN 6.8 g/dL (6.4-8.2)
[2017-07-26] MEDS ORDERED: CIPRO500 MG PO (02:02)
[2017-07-26 02:34] VITALS: BP 132/72
== END 2017-07-26 02:34 | disposition home or self-care (01) ==
LOC: ER 23:27
PROVIDERS: Emergency Medicine
DX: N39.0 Urinary tract infection, site not specified (principal); J45.909 Unspecified asthma, uncomplicated; I10 Essential (primary) hypertension; E78.00 Pure hypercholesterolemia, unspecified; Z90.49 Acquired absence of other specified parts of digestive tract; Z90.710 Acquired absence of both cervix and uterus; Z91.013 Allergy to seafood; Z88.5 Allergy status to narcotic agent; Z88.1 Allergy status to other antibiotic agents; Z88.0 Allergy status to penicillin; Z88.8 Allergy status to other drugs, medicaments and biological substances